=== PATIENT | male | born 1990 | race Caucasian/White ===

== ENCOUNTER 2020-10-19 18:07 | Emergency (ER) | payer OTHER ==
[~2020-10-19] VITALS: Ht 182.9 cm; Wt 154.2 kg
[2020-10-19 18:12] VITALS: BP 146/99
[2020-10-19] MEDS ORDERED: ALBUTEROL HFA MDI 90 MCG/ACTUATION 8 GM INH ONE (18:15)
--- NOTE | 2020-10-19 18:25 | NUR ---
PT'S FATHER SITTING AT BED
--- NOTE | 2020-10-19 18:26 | NUR ---
PATIENT PRESENTS TO ED BY AMBULANCE FOR OVERDOSE. PER EMS, PT OVERDOSED BY SMOKING UNKNOWN SUBSTANCE AND WAS FOUND WITH RESPIRATORY DEPRESSION. DENIES N/V/D; SKIN IS PINK/WARM/DRY; AAOX4 WITH EVEN AND STEADY GAIT; LUNGS CLEAR BL; HR EVEN AND REGULAR; PT DENIES ANY FEVER, CP, SOB, OR COUGH AT THIS TIME; PATIENT STATES CHRONIC FOOT PAIN OF 9/10 AT THIS TIME; VSS; PATIENT POSITIONED FOR COMFORT; HOB ELEVATED; BEDRAILS UP X1; BED DOWN. ER MD MADE AWARE OF PT STATUS. HX: ASTHMA, GASTRIC BYPASS ALLERGIES: NSAIDS, ASPIRIN
--- NOTE | 2020-10-19 19:13 | NUR ---
HANDOFF GIVEN TO GLASS BEVELER RN FOR CONTINUITY OF CARE
--- NOTE | 2020-10-19 19:14 | NUR ---
REPORT RECIEVED FROM DURGA RICE FOR CHANGE OF SHIFT REPORT.
--- NOTE | 2020-10-19 19:20 | NUR ---
ERMD AT BEDSIDE, PROVIDING EDUCATION AND ANSWERING PATIENT AND QUESTIONS.
[2020-10-19] MEDS ORDERED: NALO4SPR NS (19:29)
[2020-10-19 19:40] VITALS: BP 146/99
--- NOTE | 2020-10-19 19:40 | NUR ---
Patient discharged with v/s stable. Written and verbal after care instructions given and explained. Patient alert, oriented and verbalized understanding of instructions. Ambulatory with steady gait. All questions addressed prior to discharge. ID band removed. Patient advised to follow up with PMD. Rx of NARCAN given. Patient educated on indication of medication including possible reaction and side effects. Opportunity to ask questions provided and answered. PATIENT PROVIDED TSHIRT AND SOCKS UPON DC.
== END 2020-10-19 19:40 | disposition home or self-care (01) ==
LOC: MED 18:07
DX: T40.2X1A Poisoning by other opioids, accidental (unintentional), initial encounter (principal); R06.02 Shortness of breath; J45.909 Unspecified asthma, uncomplicated; Z88.6 Allergy status to analgesic agent; Y92.89 Other specified places as the place of occurrence of the external cause
CPT/HCPCS: 71045; 99283